=== PATIENT | male | born 1940 | race Caucasian/White ===

== ENCOUNTER 2023-04-26 12:05 | Outpatient (CLI) | payer OTHER, SELFPAY | END 2023-04-26 12:06 | disposition home or self-care (01) | LOC: AMB 04-28 06:11 | PROVIDERS: PCP Family Medicine; Visit Provider Family Medicine | DX: R41.82 Altered mental status, unspecified (principal) | CPT/HCPCS: A0425; A0427 ==

== ENCOUNTER 2023-04-26 12:34 | Emergency (ER) | payer OTHER, SELFPAY ==
[2023-04-26] VITALS (25 sets, daily range): BP systolic 69–132; BP diastolic 32–94; PULSE 18–74; RESP 13–39; TEMP 36.6; O2SAT 89–98
--- NOTE | 2023-04-26 12:40 | CT_ITS ---
Patient: LOTUS KENNEDY Facility:?[facility] Patient ID:?[id number] Site Patient ID:?[id number]. Site :?1940 Study:?CT-Head Angio W/ 95CC ISOVUE 370 CINDY CODE-04/26/2023 1:43:53 PM Ordering Physician:MATT Final Report: DATE: 04/26/2023 CLINICAL HISTORY: Patient with focal neurological deficits. TECHNIQUE: Standard helical CT image acquisition through the intracranial circulation following intravenous administration of contrast material with bolus tracking. 2D and 3D MIP images for post-processing were performed and interpreted on an independent workstation and 3D images were permanently archived. COMPARISON: CT same day. FINDINGS: There is no cerebral aneurysm or large vessel occlusion. The right internal carotid artery is normal. The right middle cerebral artery and its branches are normal. The right anterior cerebral artery and its branches are normal. The left internal carotid artery is normal. The left middle cerebral artery and its branches are normal. The left anterior cerebral artery and its branches are normal. The anterior communicating artery is well visualized and appears normal. The right vertebral artery and PICA are normal. The left vertebral artery and PICA are normal. The right vertebral artery is dominant. The basilar artery is patent and appears normal. The right posterior cerebral artery is normal. The left posterior cerebral artery is normal. The visualized venous structures are patent. IMPRESSION: Normal CT angiogram of the head without intracranial aneurysm or other neurovascular abnormality. Please note that all CT scans at this facility use dose modulation, iterative reconstruction, and/or weight-based dosing when appropriate to reduce radiation dose to as low as reasonably achievable. Dictated by Lauryn Bower MD @ 04/26/2023 2:55:30 PM Signed by:?Lauryn Bower MD @04/26/2023 2:55:30 PM (Electronic Signature)
--- NOTE | 2023-04-26 12:40 | CT_ITS ---
Patient: LOTUS KENNEDY Facility:?[facility] R[facility] Patient ID:?[id number] Site Patient ID:?[id number]. Site :?1940 Study:?CT-Neck Angio W/ 95CC ISOVUE 370 CINDY CODE-04/26/2023 1:44:39 PM Ordering Physician:MATT Final Report: DATE: 04/26/2023 CLINICAL HISTORY: Patient with focal neurological deficits. TECHNIQUE: Standard helical CT image acquisition of the neck up to the skull base after bolus intravenous contrast enhancement. 2D and 3D MIP images for post-processing were performed and interpreted on an independent workstation and 3D images were permanently archived. COMPARISON: CT same day. FINDINGS: The origins of the great vessels from the aortic arch are patent. The origin of the right vertebral artery demonstrates moderate narrowing. The origin of the left vertebral artery demonstrates mild narrowing. The common carotid arteries are patent. There is a severe to critical (89%) stenosis at the origin of the right internal carotid artery by NASCET criteria. This is caused by calcified plaque with a 0.6mm residual lumen. There is a mild (<50%) stenosis at the origin of the left internal carotid artery by NASCET criteria. This is caused by calcified plaque with a <2mm residual lumen. The rest of the cervical segments of the internal carotid arteries are patent up to the skull base. The right vertebral artery is dominant. The cervical segments of the vertebral arteries are patent up to the skull base. The visualized lung apices are unremarkable. The thyroid gland is unremarkable. The soft tissues of the neck are unremarkable. There are degenerative changes in the cervical spine. IMPRESSION: 1. Severe to critical (89%) stenosis at the origin of the right internal carotid artery by NASCET criteria. This is caused by calcified plaque with a 0.6mm residual lumen. 2. Mild (<50%) stenosis at the origin of the left internal carotid artery by NASCET criteria. This is caused by calcified plaque with a <2mm residual lumen. 3. Moderate right and mild left vertebral artery origin stenosis. Please note that all CT scans at this facility use dose modulation, iterative reconstruction, and/or weight-based dosing when appropriate to reduce radiation dose to as low as reasonably achievable. Dictated by Lauryn Bower MD @ 04/26/2023 2:52:50 PM Signed by:?Lauryn Bower MD @04/26/2023 2:52:50 PM (Electronic Signature)
--- NOTE | 2023-04-26 12:40 | CT_ITS ---
Patient: LOTUS KENNEDY Facility:?[facility] Patient ID:?[id number] Site Patient ID:?[id number]. Site :?1940 Study:?CT-Head W/O STROKE PROTOCOL-04/26/2023 12:50:53 PM Ordering Physician:MATT Final Report: Indication: Altered mental status, possible stroke Technique: Volumetric multidetector CT images of the head were obtained without the administration of low osmolar intravenous contrast. Comparison: CT head October 25, 2019 Findings: There is no intra-axial or extra-axial fluid collection. There is no mass effect or midline shift. There is age-related cortical atrophy with mild sulcal widening and ex vacuo dilatation of the lateral ventricles. There is interval development of encephalomalacia of the anterior inferior left and superior right frontal lobes from remote comparison. There is mild chronic small vessel disease change within the subcortical and periventricular white matter. Old lacunar changes of the right cerebellum are appreciated. The remaining brain parenchyma is preserved in attenuation and hernandez-white differentiation. The orbits and their contents are grossly within normal limits. The bony calvarium is grossly intact. The paranasal sinuses are clear. The mastoid air cells are well aerated. Impression: Interval development of encephalomalacia in the anteroinferior left and superior right frontal lobes from remote comparison exam. Otherwise chronic small-vessel disease changes of the brain without acute intracranial abnormality. A report was sent to Dr. Banerjee at 1:15 p.m. April 26, [address] all [address] scans at this facility use dose modulation, iterative reconstruction, and/or weight-based dosing when appropriate to reduce radiation dose to as low as reasonably achievable. Dictated by Stevan Stanton MD @ 04/26/2023 1:16:31 PM Signed by:?Stevan Stanton MD @04/26/2023 1:16:31 PM (Electronic Signature)
--- NOTE | 2023-04-26 12:55 | ED_ITS ---
HPI - General Adult General Chief complaint: Neuro Symptoms/Altered Deficit Stated complaint: AMS, possible stroke Time Seen by Provider: 04/26/23 12:36 Source: EMS Mode of arrival: EMS Limitations: altered mental status History of Present Illness HPI narrative: 82-year-old male presenting via EMS secondary to altered mental status that started just prior to presenting. Patient was at dialysis and his soonest di alysis finished he became nonverbal and unable to follow commands. At baseline patient is conversant in independent according to his son-in-law. Son-in-law also states that he has not been feeling well for the last week or so. Was feeling very weak for the last couple of days. Was seen in the emergency room at [place] and was given IV fluids for dehydration 2 days ago. Son-in-law is unaware of any fevers. Patient did have some intermittent nausea, vomiting and diarrhea. However, he continued to be conversant. He did require help getting in and out of a car for dialysis today which is unusual. [facility]. 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 Review of Systems Status of ROS: Reports: unobtainable due to medical condition Exam Narrative: Exam Narrative: Well-nourished well-developed patient, slightly agitated. Patient able to say some words such as his son-in-law's name. He can say yes or no. But generally has a very difficult time comprehending what is being said to him. Has a difficult time following commands although he does attempt to. GCS is 12 due to speech. HEENT: Normocephalic atraumatic. Pupils are equally round reactive to light. Extraocular muscles are intact. Conjunctivae are moist. Moist mucous membranes. Neck is soft. Cardiovascular: Heart is regular rate and rhythm, distant heart sounds. Lungs: Very faint bibasilar crackles. Abdomen: Soft and nontender nondistended with normal bowel sounds. No guarding or rebound. Extremities: Bilateral lower extremities show trace edema. Skin: Well perfused, very dry. Patient attempts to follow commands. He cannot elevate arms bilaterally. He can bend at the elbows but does not have the strength to lift the elbows off of the bed. He does move his bilateral lower extremities. He can say his son-in-law's name when asked. Otherwise, patient seems to have a difficult time understanding what is being said. Const: Vital Signs, click to edit/add: Vital Signs - 24 hr 04/26/23 12:39 04/26/23 12:40 04/26/23 12:40 Temperature 97.8 F Pulse Rate [Pulse Oximeter] 62 Respiratory Rate 32 H Blood Pressure [Le ft Upper Arm] 127/94 H 127/94 H Pulse Oximetry 92 98 Oxygen Delivery Me thod Room Air 04/26/23 12:40 04/26/23 13:00 04/26/23 13:15 Temperature Pulse Rate [Pulse Oximeter] Respiratory Rate Blood Pressure [Le ft Upper Arm] 84/42 L 105/70 116/77 Pulse Oximetry Oxygen Delivery Me thod 04/26/23 13:45 04/26/23 13:45 04/26/23 14:15 Temperature Pulse Rate [Pulse Oximeter] Respiratory Rate Blood Pressure [Le ft Upper Arm] 106/55 L 92/50 L 103/68 Pulse Oximetry Oxygen Delivery Me thod 04/26/23 14:30 04/26/23 15:00 04/26/23 15:04 Temperature Pulse Rate [Pulse Oximeter] Respiratory Rate Blood Pressure [Le ft Upper Arm] 115/53 L 102/65 96/55 L Pulse Oximetry Oxygen Delivery Me thod 04/26/23 16:30 04/26/23 17:00 04/26/23 17:00 Temperature Pulse Rate [Pulse Oximeter] Respiratory Rate Blood Pressure [Le ft Upper Arm] 132/92 H 106/86 120/71 Pulse Oximetry Oxygen Delivery Me thod 04/26/23 19:06 Temperature Pulse Rate [Pulse Oximeter] 67 Respiratory Rate 18 Blood Pressure [Le ft Upper Arm] 118/48 L Pulse Oximetry 91 Oxygen Delivery Me thod Room Air Course Course ED Course: Stroke code was called. Patient did go straight to CT upon arrival. Morgan brown patient was then sent to his room without the CTA head and neck being done. At this interval in time, he was examined by the neurologist who recommended we proceed with the head and neck CTA. I was told by Radiology that they sent him back to his room as they were waiting for his creatinine. I did request that they not wait for this. EKG, read by me, shows atrial fibrillation with a pulse of 60. Unclear if patient has had atrial fibrillation in the past. Labs were drawn. CBC showed pneumonia with a hemoglobin of 10.3, white blood cell count 7.6, platelet count 239. Chemistries showed a sodium 135, potassium 3.6, BUN 55, creatinine 5.8. Direct bili minimally elevated at 0.6, LFTs otherwise normal. Pneumonia normal at 13. Patient CTA head and neck preliminary reads were unremarkable. Did discuss these findings with Dr. Banerjee, who has been following the patient after a stroke code was called. Dr. 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 He recommends admission and a repeat CT scan in the morning. During his stay patient did start to clear up a little bit, GCS went from 12-14 due to amelioration of his language symptoms. Karla Gonzalez did accept the patient with a 4-8 hour delay. Did re-evaluate the patient for the end of my shift: He seems to be doing much better. Was talking with increased ease, making jokes. Vital signs stable. Requesting dinner. Vital Signs Vital signs: Initial Vital Signs Temperature 97.8 F 04/26/23 12:39 Temperature Source Temporal Artery Scan 04/26/23 12:39 Pulse Rate 62 04/26/23 12:39 Respiratory Rate 32 H 04/26/23 12:39 Blood Pressure 127/94 H 04/26/23 12:39 Blood Pressure Mean 105 04/26/23 12:39 Blood Pressure Position Supine 04/26/23 12:39 Pulse Oximetry 92 04/26/23 12:39 Oxygen Delivery Method Room Air 04/26/23 12:39 Vital Signs Temperature 97.8 F 04/26/23 12:39 Pulse Rate 62 04/26/23 12:39 Respiratory Rate 32 H 04/26/23 12:39 Blood Pressure 127/94 H 04/26/23 12:39 Pulse Oximetry 92 04/26/23 12:39 Oxygen Delivery Method Room Air 04/26/23 12:39 Temperature 97.8 F 04/26/23 12:39 Pulse Rate 67 04/26/23 19:06 Respiratory Rate 18 04/26/23 19:06 Blood Pressure 118/48 L 04/26/23 19:06 Pulse Oximetry 91 04/26/23 19:06 Oxygen Delivery Method Room Air 04/26/23 19:06 Medications Administered Medications: Generic Name Dose Route Start Last Admin Trade Name Dorothy PRN Reason Stop Dose Admin Sodium Chloride 1,000 mls @ 125 mls/hr 04/26/23 14:47 04/26/23 14:55 0.9 % Sodium Chloride 1000 Ml IV 125 mls/hr .Q8H TITI Administration Medical Decision Making MDM Narrative Medical decision making narrative: 82-year-old male with altered mental status. Patient will be transferred to [facility] for further management. Lab Data Lab results reviewed: Yes I reviewed the patient's lab results Labs: Lab Results 04/26/23 04/26/23 Range/Units 12:50 13:15 WBC 7.66 (4.50-11.00) K/uL RBC 3.37 L (4.30-5.90) m/uL Hgb 10.3 L (13.5-17.5) gm/dL Hct 31.6 L (37.0-53.0) % MCV 94 (80-100) fL MCH 31 (26-34) pg MCHC 33 (32-36) gm/dL RDW Coeff of Edu 13.9 (11.5-15.5) % Plt Count 239 (140-440) K/uL Neut % (Auto) 78.0 H (42.0-72.0) % Lymph % (Auto) 10.4 L (20-44) % [place] % (Auto) 8.5 (0.0-11.0) % Eos % (Auto) 2.7 (0.0-7.0) % Baso % (Auto) 0.3 (0.0-3.0) % Neut # (Auto) 6.00 (1.7-7.0) K/uL Lymph # (Auto) 0.80 L (0.90-2.90) K/uL [place] # (Auto) 0.70 (0.00-0.90) K/UL Eos # (Auto) 0.21 (0.00-0.50) K/uL Baso # (Auto) 0.02 (0.00-0.30) K/uL Abs Immat Gran (auto) 0.01 (0.00-0.30) K/uL Imm/Tot Granulo (auto) 0.1 % INR 1.04 (0.91-1.10) APTT 59 H (23-33) Seconds Sodium 135 (135-149) mmol/L Potassium 3.6 (3.6-5.1) mmol/L Chloride 98 (96-114) mmol/L Carbon Dioxide 22 (20-32) mmol/L Anion Gap 15 (7-15) mEq/L BUN 55 H (7-30) mg/dL Creatinine 5.8 H (0.5-1.5) mg/dL Estimated GFR 9 ml/min Glucose 93 (60-115) mg/dL Calcium 8.5 (8.4-10.6) mg/dL Total Bilirubin 0.6 (0.1-1.5) mg/dL Direct Bilirubin 0.6 H (0.0-0.5) mg/dL AST 12 (12-35) U/L ALT 16 (4-50) U/L Alkaline Phosphatase 92 (40-150) U/L Ammonia 13.0 L (13.1-30.0) umol/L Total Protein 7.0 (6.0-8.3) g/dL Albumin 3.8 (3.3-5.0) g/dL Imaging Data CT scan - head: Attestation: I have reviewed the pertinent imaging results. Radiologist's impression: Findings: There is no intra-axial or extra-axial fluid collection. There is no mass effect or midline shift. There is age-related cortical atrophy with mild sulcal widening and ex vacuo dilatation of the lateral ventricles. There is interval development of encephalomalacia of the anterior inferior left and superior right frontal lobes from remote comparison. There is mild chronic small vessel disease change within the subcortical and periventricular white matter. Old lacunar changes of the right cerebellum are appreciated. The remaining brain parenchyma is preserved in attenuation and hernandez-white differentiation. The orbits and their contents are grossly within normal limits. The bony calvarium is grossly intact. The paranasal sinuses are clear. The mastoid air cells are well aerated. Impression: Interval development of encephalomalacia in the anteroinferior left and superior right frontal lobes from remote comparison exam. Otherwise chronic small-vessel disease changes of the brain without acute intracranial abnormality. CTA head: Attestation: I have reviewed the pertinent imaging results. Radiologist's impression: Standard helical CT image acquisition through the intracranial circulation following intravenous administration of contrast material with bolus tracking. 2D and 3D MIP images for post-processing were performed and interpreted on an independent workstation and 3D images were permanently archived. COMPARISON: CT same day. FINDINGS: There is no cerebral aneurysm or large vessel occlusion. The right internal carotid artery is normal. The right middle cerebral artery and its branches are normal. The right anterior cerebral artery and its branches are normal. The left internal carotid artery is normal. The left middle cerebral artery and its branches are normal. The left anterior cerebral artery and its branches are normal. The anterior communicating artery is well visualized and appears normal. The right vertebral artery and PICA are normal. The left vertebral artery and PICA are normal. The right vertebral artery is dominant. The basilar artery is patent and appears normal. The right posterior cerebral artery is normal. The left posterior cerebral artery is normal. The visualized venous structures are patent. IMPRESSION: Normal CT angiogram of the head without intracranial aneurysm or other neurovascular abnormality. CTA neck: Attestation: I have reviewed the pertinent imaging results. Radiologist's impression: Standard helical CT image acquisition of the neck up to the skull base after bolus intravenous contrast enhancement. 2D and 3D MIP images for post-processing were performed and interpreted on an independent workstation and 3D images were permanently archived. COMPARISON: CT same day. FINDINGS: The origins of the great vessels from the aortic arch are patent. The origin of the right vertebral artery demonstrates moderate narrowing. The origin of the left vertebral artery demonstrates mild narrowing. The common carotid arteries are patent. There is a severe to critical (89%) stenosis at the origin of the right internal carotid artery by NASCET criteria. This is caused by calcified plaque with a 0.6mm residual lumen. There is a mild (<50%) stenosis at the origin of the left internal carotid artery by NASCET criteria. This is caused by calcified plaque with a <2mm residual lumen. The rest of the cervical segments of the internal carotid arteries are patent up to the skull base. The right vertebral artery is dominant. The cervical segments of the vertebral arteries are patent up to the skull base. The visualized lung apices are unremarkable. The thyroid gland is unremarkable. The soft tissues of the neck are unremarkable. There are degenerative changes in the cervical spine. IMPRESSION: 1. Severe to critical (89%) stenosis at the origin of the right internal carotid artery by NASCET criteria. This is caused by calcified plaque with a 0.6mm residual lumen. 2. Mild (<50%) stenosis at the origin of the left internal carotid artery by NASCET criteria. This is caused by calcified plaque with a <2mm residual lumen. 3. Moderate right and mild left vertebral artery origin stenosis. ECG Data Attestation: I personally reviewed and interpreted this ECG as follows: Discharge Plan Discharge Clinical Impression: Acute encephalopathy, Altered mental status Patient Disposition: [facility] Condition: Stable Stand Alone Forms: [employer] Info Instructions
[2023-04-26 13:04] LABS: Basophils Absolute Auto 0.02 K/uL (0.00-0.30); Basophils Percent Auto 0.3 % (0.0-3.0); Eosinophils Absolute Auto 0.21 K/uL (0.00-0.50); Eosinophils Percent Auto 2.7 % (0.0-7.0); Hematocrit 31.6 % (37.0-53.0); Hemoglobin* 10.3 gm/dL (13.5-17.5); Immature Granulocytes Abs Auto 0.01 K/uL (0.00-0.30); Immature Granulocytes Pct Auto 0.1 %; Lymphocytes Percent Auto 10.4 % (20-44); Mean Corpuscular HGB Conc 33 gm/dL (32-36); Mean Corpuscular Hemoglobin 31 pg (26-34); Mean Corpuscular Volume 94 fL (80-100); Monocytes Percent Auto 8.5 % (0.0-11.0); Platelet Count* 239 K/uL (140-440); RDW Coefficient of Variation % 13.9 % (11.5-15.5); Red Blood Count 3.37 m/uL (4.30-5.90); White Blood Count* 7.66 K/uL (4.50-11.00)
[2023-04-26 13:11] LABS: Slide Review Reflex No
[2023-04-26 13:16] LABS: Chloride* 98 mmol/L (96-114)
[2023-04-26 13:17] LABS: Potassium* 3.6 mmol/L (3.6-5.1); Sodium* 135 mmol/L (135-149)
[2023-04-26 13:19] LABS: Creatinine* 5.8 mg/dL (0.5-1.5); Estimated Glomerular Filt Rate 9 ml/min; INR 1.04 (0.91-1.10); Prothrombin Time 14.2 Seconds
[2023-04-26 13:20] LABS: Anion Gap 15 mEq/L (7-15); Blood Urea Nitrogen* 55 mg/dL (7-30); Calcium* 8.5 mg/dL (8.4-10.6); Carbon Dioxide* 22 mmol/L (20-32); Glucose* 93 mg/dL (60-115); Partial Thromboplastin Time* 59 Seconds (23-33)
[2023-04-26 14:07] LABS: Albumin* 3.8 g/dL (3.3-5.0)
[2023-04-26 14:10] LABS: Alkaline Phosphatase* 92 U/L (40-150); Aspartate Amino Transferase* 12 U/L (12-35); Bilirubin Direct* 0.6 mg/dL (0.0-0.5); Bilirubin Total* 0.6 mg/dL (0.1-1.5)
[2023-04-26 14:11] LABS: Alanine Aminotransferase* 16 U/L (4-50)
[2023-04-26] MEDS: 0.9 % SODIUM CHLORIDE 1000 ml 1,000 ML 125 ML IV (14:55)
[2023-04-27 00:24] VITALS: BP 110/65; PULSE 79; RESP 18; TEMP 36.7; O2SAT 97
[2023-04-27 00:35] VITALS: BP 110/65; PULSE 79; RESP 18; TEMP 36.7
== END 2023-04-27 00:35 | disposition short-term general hospital (02) ==
PROVIDERS: Emergency Provider Family Medicine; PCP Family Medicine
DX: G93.49 Other encephalopathy (principal); R41.82 Altered mental status, unspecified
CPT/HCPCS: 36415; 70450; 70496; 70498; 80048; 80076; 82140; 82962; 85025; 85610; 85730; 93005; 94761; 96360; 96361; 99285; 99291; G0427; J7030; Q9967

== ENCOUNTER 2023-04-27 00:17 | Outpatient (CLI) | payer OTHER, SELFPAY | END 2023-04-27 00:18 | disposition home or self-care (01) | PROVIDERS: PCP Family Medicine; Visit Provider Family Medicine | DX: R41.82 Altered mental status, unspecified (principal); R53.1 Weakness | CPT/HCPCS: A0425; A0426 ==